=== PATIENT | male | born 1995 | race Caucasian/White ===

== ENCOUNTER 2023-01-02 17:55 | Emergency (ER) | payer OTHER ==
[~2023-01-02] VITALS: Ht 175.3 cm; Wt 75.5 kg
[2023-01-02 19:40] LABS: BASO # 0.02 K/mm3 (0.02-0.10); EOS % 1.1 % (0.0-4.0); HEMATOCRIT 52.2 % (42.0-52.0); HEMOGLOBIN 18.2 g/dL (13.5-18.0); LYMPH# 3.08 K/mm3 (1.50-4.00); MEAN CELL VOLUME 84 fl (78-100); MEAN CORPUSCULAR HEMOGLOBIN 29 pg (27-31); MEAN CORPUSCULAR HGB CONC 35 g/dL (33-37); MEAN PLATELET VOLUME 10.2 fl (7.4-10.4); NEU # 5.66 K/mm3 (1.40-6.50); PLATELET COUNT 212 K/mm3 (130-400); RED BLOOD COUNT 6.24 M/mm3 (4.20-5.60); RED CELL DISTRIBUTION WIDTH 11.7 % (11.5-14.5); WHITE BLOOD COUNT 9.5 K/mm3 (4.8-10.8)
[2023-01-02 19:47] LABS: ALBUMIN 4.3 g/dL (3.5-5.0); POTASSIUM 3.9 mmol/L (3.5-5.1)
[2023-01-02 19:49] LABS: CALCIUM 9.3 mg/dL (8.3-10.5)
[2023-01-02 19:50] LABS: TOTAL PROTEIN 7.5 g/dL (6.4-8.3)
[2023-01-02 19:52] LABS: TOTAL BILIRUBIN 0.6 mg/dL (0.2-1.2)
[2023-01-02 19:56] LABS: URINE WBC 0 /hpf (0-3)
[2023-01-02 20:22] LABS: URINE APPEARANCE CLEAR; URINE COLOR YELLOW; URINE KETONE 3+ (NEGATIVE); URINE PROTEIN(semi-quant) TRACE (NEGATIVE)
[2023-01-02 20:23] LABS: URINE BILIRUBIN NEGATIVE (NEGATIVE); URINE BLOOD TRACE (NEGATIVE); URINE LEUKOCYTE ESTERASE NEGATIVE (NEGATIVE); URINE NITRATE NEGATIVE (NEGATIVE); URINE UROBILINOGEN NORMAL (NORMAL)
[2023-01-02 21:55] VITALS: BP 137/77
== END 2023-01-02 22:00 | disposition short-term general hospital (02) ==
LOC: ED 17:55
PROVIDERS: Physician Assistant
DX: E11.10 Type 2 diabetes mellitus with ketoacidosis without coma (principal); Z28.310 Unvaccinated for COVID-19
CPT/HCPCS: J1815; J7030